=== PATIENT | female | born 1955 ===

== ENCOUNTER → 2019-05-13 | Outpatient (REF) | LOC: M LAB LCGH 10:26 | PROVIDERS: ATTEND Surgery | DX: R04.0 Epistaxis (principal) ==

== ENCOUNTER → 2022-03-24 | Outpatient (REF) | LOC: M LAB LCGH 14:56 | DX: Z79.899 Other long term (current) drug therapy (principal) ==

== ENCOUNTER → 2022-03-25 | Outpatient (REF) | LOC: M LAB LCGH 09:04 | PROVIDERS: ATTEND Physician Assistant | DX: Z79.899 Other long term (current) drug therapy (principal) ==

== ENCOUNTER → 2022-03-26 | Outpatient (REF) | LOC: M LAB LCGH 09:35 | PROVIDERS: ATTEND Physician Assistant | DX: Z79.899 Other long term (current) drug therapy (principal) ==

== ENCOUNTER → 2022-03-27 | Outpatient (REF) | LOC: M LAB LCGH 09:14 | PROVIDERS: ATTEND Physician Assistant | DX: Z79.899 Other long term (current) drug therapy (principal) ==